=== PATIENT | female | born 1990 | race Two or more races ===

== ENCOUNTER → 2024-07-14 | Emergency (ER) | payer OTHER ==
[~2024-07-14] VITALS: Ht 157.5 cm; Wt 74.8 kg
== END | disposition left against medical advice (07) ==
LOC: ER 20:18
DX: Z53.21 Procedure and treatment not carried out due to patient leaving prior to being seen by health care provider (principal)

== ENCOUNTER 2024-08-04 12:53 | Emergency (ER) | payer OTHER ==
[~2024-08-04] VITALS: Ht 144.8 cm; Wt 74.8 kg
[2024-08-04] MEDS ORDERED: ONDANSETRON HCL 2 MG/ML VIAL IV ONE (16:15)
[2024-08-04] MEDS ORDERED: ACETAMINOPHEN 325 MG TABLET PO ONE (16:15)
[2024-08-04] MEDS ORDERED: 0.9 % SODIUM CHLORIDE 1,000 ML IV ONE (16:15)
[2024-08-04] MEDS ORDERED: FAMOtidine 10 MG/ML (4ML VIAL) IV ONE (16:15)
[2024-08-04] MEDS ORDERED: ONDANSETRON HCL 2 MG/ML VIAL ONE (16:21)
[2024-08-04] MEDS ORDERED: ACETAMINOPHEN 500 MG GEL..CAP PO ONE (16:22)
[2024-08-04] MEDS ORDERED: FAMOTIDINE/PF 20 MG/2 ML VIAL ONE (16:22)
[2024-08-04 16:36] LABS: HEMATOCRIT 41.2 % (36.0-45.00); HEMOGLOBIN 14.2 g/dL (12.0-15.00); MEAN CELL VOLUME 84.8 fL (80.00-100.00); MEAN CORPUSCULAR HEMOGLOBIN 29.2 pg (27.00-32.0); MEAN CORPUSCULAR HGB CONC 34.5 g/dl (32.0-36.0); PLATELET COUNT 420 K/uL (150-450); RED BLOOD COUNT 4.86 M/uL (4.00-6.00); RED CELL DISTRIBUTION WIDTH 14.7 % (11.5-14.5)
[2024-08-04 16:52] LABS: URINE APPEARANCE Clear; URINE BILIRRUBIN Small (NEGATIVE); URINE BLOOD Negative; URINE COLOR Dark Yellow; URINE GLUCOSE Negative (NEGATIVE); URINE KETONE 15 (NEGATIVE); URINE LEUKOCYTE Trace; URINE NITRATE Negative; URINE PROTEIN 30 (NEGATIVE)
[2024-08-04 16:53] LABS: URINE BACTERIA 2435.6 uL (0.0-1933); URINE EPITHELIAL CELLS 71.8 uL (0.0-38.8); URINE RBC 31.2 uL (0.0-20.8); URINE WBC 32.1 uL (0.0-23.2)
[2024-08-04 16:54] LABS: COVID-19 AG NEGATIVE (NEGATIVE)
[2024-08-04 17:04] LABS: INFLUENZA A AG NEGATIVE (NEGATIVE)
[2024-08-04 17:15] LABS: ALBUMIN 3.9 gm/dL (3.4-5.0); ALKALINE PHOSPHATASE 65 U/L (50-136); ALT/SGPT 19 U/L (12-78); AMYLASE 27 U/L (25-115); ANION GAP 11 (10.0-20.0); AST/SGOT 18 U/L (15-37); BLOOD UREA NITROGEN 8 mg/dL (7-18); BUN CREA RATIO 10 (7.0-25.0); CALCIUM 9.5 mg/dL (8.5-10.1); CARBON DIOXIDE 31 mEq/L (21-32); CHLORIDE 102 mmol/L (98-107); GFR 83.66; GLOBULINA 4.2 G/DL (2.4-3.5); GLUCOSE FASTING 94 mg/dL (65-100); LIPASE 26 U/L (13-75); OSMOLALITY SERUM 279 MOSM/KG (275-295); SODIUM 141 mmol/L (136-145); TOTAL PROTEIN 8.1 gm/dL (6.4-8.2)
[2024-08-04 17:18] LABS: URINE CAST 0.29 uL (0.0-1.40)
[2024-08-04 17:20] LABS: HCG QUANTITATIVE < 1 mUI/mL (1-3)
[2024-08-04] MEDS ORDERED: CEFTRIAXONE SODIUM 1,000 MG VIAL IV ONE (17:30)
[2024-08-04] MEDS ORDERED: ZOFRAN8 MG PO (17:34)
[2024-08-04] MEDS ORDERED: BACTRIM DS TAB1 EACH PO (17:34)
[2024-08-04] MEDS ORDERED: PEPCID AC20 MG PO (17:34)
[2024-08-04] MEDS ORDERED: CEFTRIAXONE SODIUM 1,000 MG VIAL ONE (17:58)
== END 2024-08-04 18:11 | disposition home or self-care (01) ==
LOC: ER 12:54
PROVIDERS: General Practice
DX: J00 Acute nasopharyngitis [common cold] (principal); R11.10 Vomiting, unspecified; F31.89 Other bipolar disorder; Z20.822 Contact with and (suspected) exposure to COVID-19